=== PATIENT | female | born 1965 | race Caucasian/White ===

== ENCOUNTER 2016-09-27 21:59 | Observation (INO) | payer OTHER ==
[~2016-09-27] VITALS: Ht 170.2 cm; Wt 53.0 kg
[2016-09-27 22:45] LABS: BASOPHIL % 0.4 % (0-2); PLATELET COUNT 252 x10^3mcL (130-400)
[2016-09-27 22:52] LABS: CALCIUM 9.4 mg/dL (8.5-10.1); CARBON DIOXIDE 27.6 mmol/L (21-32); CHLORIDE SERUM 107 mmol/L (98-107); CREATININE SERUM 0.7 mg/dL (0.6-1.0); GFR1 > 60 mL/min; GLUCOSE SERUM 97 mg/dL (74-106); POTASSIUM SERUM 3.5 mmol/L (3.5-5.1); SODIUM SERUM 140 mmol/L (136-145)
[2016-09-27 22:57] LABS: ALBUMIN 4.1 g/dL (3.4-5.0); ALKALINE PHOSPHATASE 64 U/L (46-116); ALT/SGPT 24 U/L (14-59); AST/SGOT 19 U/L (15-37); BILIRUBIN TOTAL 0.7 mg/dL (0.20-1.00); TOTAL PROTEIN, SERUM 7.3 g/dL (6.4-8.2)
[2016-09-27 23:10] LABS: CK-MB 0.9 ng/mL (0-3.6)
[2016-09-28] MEDS ORDERED: LEVOTHYROXINE0.05 M2 PO (00:11)
[2016-09-28 00:56] VITALS: BP 129/80
[2016-09-28 01:56] LABS: MAGNESIUM 2.2 mg/dL (1.8-2.4); PHOSPHOROUS 3.4 mg/dL (2.5-4.9)
[2016-09-28 01:57] VITALS: BP 129/80
[2016-09-28 01:59] LABS: FREE T4 1.13 ng/dL (0.76-1.46); FREE THYROXINE INDEX 3.3 ug/dL (1.4-4.5); T4(THYROXINE) 9.5 ug/dL (4.7-13.3)
[2016-09-28 02:27] LABS: CHOLESTEROL/HDL RATIO 2.6
[2016-09-28 06:18] VITALS: BP 112/63
[2016-09-28 07:08] LABS: UA SPECIFIC GRAVITY <=1.005 (1.005-1.035); microscopic required? YES; urine erythrocyte NEGATIVE (NEGATIVE)
[2016-09-28 09:59] VITALS: BP 116/54
[2016-09-28 14:14] VITALS: BP 122/67
[2016-09-28 14:45] LABS: T3 TOTAL 0.99 ng/mL
[2016-09-28 15:19] VITALS: BP 122/67
[2016-09-28] MEDS ORDERED: ECO81 PO (15:25)
[2016-09-28] MEDS ORDERED: LIPI10 PO (15:25)
== END 2016-09-28 16:09 | disposition home or self-care (01) | DRG 312 ==
LOC: ED 21:59 → DU 09-28 00:16
PROVIDERS: Emergency Medicine; ADMIT Family Medicine
DX: R55 Syncope and collapse (principal); I49.1 Atrial premature depolarization; E03.9 Hypothyroidism, unspecified; N95.1 Menopausal and female climacteric states
CPT/HCPCS: 82962; 83880; 84439; G0378; J7030; Q0092